=== PATIENT | male | born 1950 | race Caucasian/White ===

== ENCOUNTER 2019-09-24 08:44 | Emergency (ER) | payer OTHER, BC ==
[~2019-09-24] VITALS: Ht 172.7 cm; Wt 83.9 kg
[2019-09-24 08:48] VITALS: Ht 172.7 cm; Wt 83.9 kg
[2019-09-24 09:28] LABS: CALCIUM 9.2 mg/dL (8.5-10.1); CARBON DIOXIDE 20.7 mmol/L (21-32); CREATININE SERUM 1.6 mg/dL (0.7-1.3); POTASSIUM SERUM 4.1 mmol/L (3.5-5.1)
[2019-09-24 09:30] LABS: BASOPHIL % 0.4 % (0-2); PLATELET COUNT 253 x10^3mcL (130-400); RED CELL DISTRIBUTION WIDTH 13.3 % (11.5-14.5)
[2019-09-24 09:32] LABS: BILIRUBIN TOTAL 0.77 mg/dL (0.20-1.00); TOTAL PROTEIN, SERUM 7.8 g/dL (6.4-8.2)
[2019-09-24 09:49] VITALS: BP 104/81
== END 2019-09-24 09:49 | disposition short-term general hospital (02) ==
LOC: ED 08:44
PROVIDERS: Emergency Medicine
DX: I21.09 ST elevation (STEMI) myocardial infarction involving other coronary artery of anterior wall (principal)
CPT/HCPCS: 83880; J2405; J3010; J3490; J7030; Q0092